=== PATIENT | female | born 1975 | race Two or more races ===

== ENCOUNTER → 2016-10-26 | Outpatient (CLI) | payer MEDICARE, OTHER ==
[~2016-10-26] MED LIST: BIOTIN 5000MCG PO; DAILY VALUE1 EACH PO; FERROUS SULFAT134 MG PO; IBUPROFEN800 MG PO; IRON PO; OXYCODONE-APAP1 EACH PO; PREDNISONE10 MG PO; TYLENOL EXTRA500 MG PO; VERAPAMIL HCL240 MG PO; VITAMIN D31000 UNIT PO
== END | disposition home or self-care (01) ==
LOC: CDC 12:17
DX: D69.3 Immune thrombocytopenic purpura (principal); I45.10 Unspecified right bundle-branch block
CPT/HCPCS: 93000

== ENCOUNTER 2016-11-08 21:20 | Inpatient (IN) | payer MEDICARE, OTHER ==
[~2016-11-08] VITALS: Ht 177.8 cm; Wt 135.0 kg
[~2016-11-08 21:20] MED LIST changes: +AMBIEN10 MG PO; -BIOTIN 5000MCG PO; +DELTASONE20 M1 PO; +ELAVIL25 MG PO; +IMITREX50 MG PO; +MAGNESIUM PO; +MEGA BIOTIN10000 MCG PO; +POTASSIUM-9999 MG PO; -VERAPAMIL HCL240 MG PO; +VERAPAMIL HCL360 MG PO
[2016-11-09 07:38] LABS: HEMATOCRIT 42.7 % (36.0-46.0); MCH 25.2 PG (29.0-34.0); MCHC 31.6 G/DL (30.0-36.0); MCV 79.7 FL (83-99); PLATELET COUNT 77 K/uL (156-360); RBC DIS.WIDTH-CV 14.1 % (11.8-14.6); RBC DIS.WIDTH-SD 40.3 % (39-53); RED BLOOD COUNT 5.36 M/uL (3.80-5.20); WHITE BLOOD COUNT 11.5 K/uL (4.1-10.2)
[2016-11-09 07:42] VITALS: BP 175/86
[2016-11-09 07:58] LABS: MEAN PLAT.VOLUME 13.5 uM^3 (9.5-12.4)
[2016-11-09 15:35] VITALS: BP 168/98
[2016-11-09 18:09] LABS: HEMATOCRIT 37.6 % (36.0-46.0); MCH 25.5 PG (29.0-34.0); MCHC 31.9 G/DL (30.0-36.0); MCV 79.8 FL (83-99); MEAN PLAT.VOLUME 12.4 uM^3 (9.5-12.4); PLATELET COUNT 98 K/uL (156-360); RBC DIS.WIDTH-CV 14.1 % (11.8-14.6); RED BLOOD COUNT 4.71 M/uL (3.80-5.20); WHITE BLOOD COUNT 18.3 K/uL (4.1-10.2)
[2016-11-09 19:18] VITALS: BP 135/88
[2016-11-10 00:19] VITALS: BP 167/98
[2016-11-10 04:23] VITALS: BP 145/98
[2016-11-10 07:15] VITALS: BP 150/86
[2016-11-10 07:37] LABS: HEMATOCRIT 31.2 % (36.0-46.0); MCH 25.3 PG (29.0-34.0); MCHC 31.7 G/DL (30.0-36.0); MCV 79.8 FL (83-99); MEAN PLAT.VOLUME 11.8 uM^3 (9.5-12.4); RBC DIS.WIDTH-CV 14.3 % (11.8-14.6); RBC DIS.WIDTH-SD 41.5 % (39-53); RED BLOOD COUNT 3.91 M/uL (3.80-5.20); WHITE BLOOD COUNT 18.2 K/uL (4.1-10.2)
[2016-11-10 07:41] LABS: PLATELET COUNT 152 K/uL (156-360)
[2016-11-10 07:57] LABS: ANION GAP 3 MEQ/L (2-14); CHLORIDE 101 MEQ/L (99-109); GFR ESTIMATE (CALCULATED) > 59 mL/min/; GLUCOSE 132 mg/dL (70-99); SAMPLE HEMOLYSIS CHECK 0; SAMPLE ICTERIC CHECK 0; SAMPLE LIPEMIA CHECK 0; SODIUM 135 MEQ/L (136-147); UREA NITROGEN (BUN) 9 mg/dL (9-23)
[2016-11-10 11:08] VITALS: BP 136/85
[2016-11-10 16:01] VITALS: BP 157/92
[2016-11-10 20:13] VITALS: BP 133/70
[2016-11-11 00:40] VITALS: BP 142/90
[2016-11-11 03:13] VITALS: BP 149/78
[2016-11-11 07:40] VITALS: BP 138/88
[2016-11-11] MEDS ORDERED: ENDOCET 5-3251 EACH PO (09:40)
== END 2016-11-11 11:40 | disposition home or self-care (01) | DRG 800 ==
LOC: ENRESERV 21:20 → CANRESERV 21:20 → 2EAST 11-09 06:58 → 2SOUTH 11-09 06:58 → ENRESERV 11-09 12:22 → 2SOUTH 11-09 12:32 → ENRESERV 11-09 12:56 → 2EAST 11-09 15:27 → 2SOUTH 11-09 15:50 → 2EAST 11-11 11:40
PROVIDERS: Surgery
DX: D69.3 Immune thrombocytopenic purpura (principal); Z68.41 Body mass index [BMI] 40.0-44.9, adult; E66.01 Morbid (severe) obesity due to excess calories; E87.6 Hypokalemia; G43.009 Migraine without aura, not intractable, without status migrainosus; I10 Essential (primary) hypertension; I87.8 Other specified disorders of veins; R73.03 Prediabetes; Z86.73 Personal history of transient ischemic attack (TIA), and cerebral infarction without residual deficits
CPT/HCPCS: 36430; 71010; 80048; 85025; 85027; 86920; 86999; 88305; 96374; 96374 59; J0131; J0330; J1100; J1170; J1200; J2250; J2270; J2405; J2710; J2765; J3010; P9035; P9045; S0028